=== PATIENT | female | born 1980 | race African-American/Black ===

== ENCOUNTER 2024-08-07 13:58 | Emergency (ER) | payer OTHER ==
[~2024-08-07] VITALS: Ht 167.6 cm; Wt 90.7 kg
[2024-08-07 14:02] VITALS: O2SAT 100
[2024-08-07 15:05] LABS: BASOPHILS % 0.9 % (0.0-2.0); EOSINOPHILS % 4.9 % (0.0-5.0); HEMATOCRIT. 38.4 % (36.0-48.0); HEMOGLOBIN. 12.4 g/dL (12.0-16.0); LYMPHOCYTES % 23.4 % (20.0-50.0); MEAN CORPUSCULAR HEMOGLOBIN 29.9 pg (28.0-32.0); MEAN CORPUSCULAR HGB CONC 32.2 g/dL (31.0-37.0); MONOCYTES % 5.6 % (2.0-8.0); NEUTROPHILS % 65.2 % (40.0-76.0); RED BLOOD CELL COUNT 4.13 mill/uL (4.2-5.4); RED CELL DISTRIBUTION WIDTH 16.5 % (11.6-14.6); WHITE BLOOD COUNT 10.2 x1000/uL (4.5-11.0)
[2024-08-07 15:11] LABS: CALCIUM 10.1 mg/dL (8.7-10.4)
[2024-08-07 15:14] LABS: DIFFERENTIAL COMMENT 1
[2024-08-07 15:26] LABS: CREATININE 7.2 mg/dL (0.6-1.0)
[2024-08-07 15:50] LABS: INR 0.9; PROTHROMBIN TIME 9.9 sec (9.6-11.0); TROPONIN I HIGH SENSITIVITY 12 ng/L (3.0-34)
[2024-08-07 16:16] LABS: MEAN PLATELET VOLUME 9.3 fl (7.4-10.4); PLATELET 287 x1000/uL (130-400)
[2024-08-07] MEDS: CEFEPIME 1GM/50ML 50 ML IV SCH (18:30)
[2024-08-07 18:52] VITALS: BP 171/103; PULSE 88; RESP 18; TEMP 36.78072; O2SAT 100
[2024-08-07] MEDS ORDERED: AMLO10TA80 PO (18:52)
[2024-08-07] MEDS ORDERED: METO-539 MT (18:52)
[2024-08-07] MEDS ORDERED: HYDR25TA78 MT (18:52)
[2024-08-07] MEDS ORDERED: FOLI0.8T53 MT (18:58)
[2024-08-07] MEDS ORDERED: GABA-529 MT (18:58)
[2024-08-07] MEDS ORDERED: DAPA10TA MT (18:58)
[2024-08-07] MEDS ORDERED: SEVE800T8 MT (18:58)
[2024-08-07] MEDS ORDERED: CEFEPIME 2GM/50ML DUPLEX 50 ML IV SCH (22:00)
[2024-08-08] MEDS ORDERED: METRONIDAZOLE 500 MG PREMIX 100 ML IV SCH (09:00)
== END 2024-08-07 23:13 | disposition left against medical advice (07) ==
LOC: ER 14:15 → EDBEDREQ 15:35 → CANBEDREQ 22:55 → ER 23:13
DX: R78.81 Bacteremia (principal); I12.0 Hypertensive chronic kidney disease with stage 5 chronic kidney disease or end stage renal disease; E11.22 Type 2 diabetes mellitus with diabetic chronic kidney disease; N18.6 End stage renal disease; Z99.2 Dependence on renal dialysis; Z79.899 Other long term (current) drug therapy
CPT/HCPCS: 99291; 96365; 80048; 85025; 83880; 85610; 86850; 86900; 86901; 87040; 84484; 36415; 71045; 93005; J0692